=== PATIENT | male | born 1950 | race Two or more races ===

== ENCOUNTER 2018-04-02 07:27 | Emergency (ER) | payer MEDICARE, OTHER ==
[2018-04-02 07:39] VITALS: BP 165/80; PULSE 71; TEMP 97.8; BMI 34.5
--- NOTE | 2018-04-02 07:50 | PDOC ---
History of Present Illness - General Chief Complaint: Pain, Acute Stated Complaint: LOWER LEFT SIDE PAIN Time Seen by Provider: 04/02/18 07:47 History Source: Patient Exam Limitations: No Limitations - History of Present Illness Initial Comments: Pt is a 67 yo M, with PMH of diabetes (on metformin only), who is presenting with complaints of LLQ abdominal pain since 5 am this morning. Pt states it is constant and sharp in nature, with no radiation to his testicles, back, or flank. Pt stats last BM was yesterday morning and has been regular. He has been tolerating PO food and fluid intake. Pt denies any fevers/chills, headache, vision changes, syncope, chest pain, palpitations, SOB, nausea/vomiting, urinary symptoms (hematuria, dysuria, urgency), diarrhea/constipation, or leg swelling. Social: Pt denies any cigarette, alcohol, or drug use. Pt denies any recent travel or sick contacts. Surgical: no relevant history. Family: son with kidney stones, mother with DM. 04/02/18 08:18 Past History - Travel Traveled outside of the country in the last 30 days: No Close contact w/someone who was outside of country & ill: No - Past Medical History Allergies/Adverse Reactions: Allergies Allergy/AdvReac Type Severity Reaction Status Date / Time No Known Allergies Allergy Verified 04/02/18 07:36 Cardiac Disorders: No Diabetes: Yes HTN: No Hypercholesterolemia: No - Surgical History Abdominal Surgery: No GI Surgery: No - Family Disease History Family Disease History: Diabetes: Mother Comment:: Son with kidney stones 04/02/18 08:21 - Suicide/Smoking/Psychosocial Hx Smoking History: Never smoked Review of Systems - Review of Systems Able to Perform ROS?: Yes Is the patient limited [place] proficient: No Constitutional: Yes: Weight Stable. No: Chills, Diaphoresis, Fever, Loss of Appetite, Weakness HEENTM: No: Recent change in vision, Nose Congestion, Hearing Loss, Throat Pain Respiratory: No: Cough, Orthopnea, Shortness of Breath Cardiac (ROS): No: Chest Pain, Edema, Lightheadedness, Palpitations, Syncope, Chest Tightness ABD/GI: Yes: Abdominal cramping. No: Abdominal Distended, Blood Streaked Bowels , Constipated, Diarrhea, Nausea, Poor Appetite, Poor Fluid Intake, Rectal Bleeding, Vomiting : No: Burning, Dysuria, Frequency, Flank Pain, Hematuria, Pain, Urgency, Testicular Swelling, Testicular Pain Musculoskeletal: Yes: Back Pain (lower back pain, pt states is chronic in his low back from work). No: Joint Pain Integumentary: No: Rash Neurological: No: Headache, Weakness, Unsteady Gait, Ataxia, Dizziness Psychiatric: No: Sleep Pattern Change, Change in Appetite Endocrine: No: Increased Urine, Change in Weight Hematologic/Lymphatic: No: Anemia, Blood Clots, Easy Bleeding, Easy Bruising All Other Systems: Reviewed and Negative *Physical Exam - Vital Signs Last Vital Signs Temp Pulse Resp BP Pulse Ox 97.8 F 71 19 165/80 95 04/02/18 07:36 04/02/18 07:36 04/02/18 07:36 04/02/18 07:36 04/02/18 07:36 - Physical Exam General Appearance: Yes: Nourished, Appropriately Dressed, Mild Distress (pt appears to be in pain), Obese HEENT: positive: EOMI, ANAI, Normal ENT Inspection, Normal Voice, Pharynx Normal , Hearing Grossly Normal. negative: Scleral Icterus (R), Scleral Icterus (L), Pharyngeal Erythema, Tonsillar Exudate, Tonsillar Erythema, Rhinorrhea Neck: positive: Trachea midline, Normal Thyroid, Supple. negative: Tender, Rigid, Decreased range of motion, Lymphadenopathy (R), Lymphadenopathy (L), Rigidity Respiratory/Chest: positive: Lungs Clear, Normal Breath Sounds. negative: Chest Tender, Respiratory Distress, Accessory Muscle Use, Crackles, Wheezing Cardiovascular: positive: Regular Rhythm, Regular Rate, S1, S2. negative: Edema , JVD, Murmur Vascular Pulses: Carotid (R): 4+, Carotid (L): 4+ Gastrointestinal/Abdominal: positive: Normal Bowel Sounds, Flat, Soft. negative : Tender, Organomegaly, Pulsatile Mass, Distended, Guarding, Rebound, Hernia Male Genitalia: negative: testicular tenderness, hernia, CVAT Rectal Exam: positive: deferred Lymphatic: negative: Adenopathy, Tenderness Musculoskeletal: positive: Normal Inspection. negative: CVA Tenderness, Decreased Range of Motion Extremity: positive: Normal Capillary Refill, Normal Inspection, Normal Range of Motion, Pelvis Stable. negative: Tender, Pedal Edema Integumentary: positive: Normal Color, Dry, Warm. negative: Jaundice, Clammy, Diaphoresis Neurologic: positive: cleaner and trimmer II-XII NML intact, Fully Oriented, Alert, Normal Mood/ Affect, Normal Response, Motor Strength 5/5 Moderate Sedation - Procedure Monitoring Vital Signs: Procedure Monitoring Vital Signs Temperature 97.8 F 04/02/18 07:36 Pulse Rate 71 04/02/18 07:36 Respiratory Rate 04/02/18 07:36 Blood Pressure 165/80 04/02/18 07:36 O2 Sat by Pulse Oximetry (%) 95 04/02/18 07:36 ED Treatment Course - LABORATORY CBC & Chemistry Diagram: 04/02/18 08:31 04/02/18 08:31 Medical Decision Making - Medical Decision Making Pt was seen at bedside, also will be seen by attending Dr. Monet. Pt presenting with complaints of LLQ abdominal pain since 5 am this morning. Pt states it is constant and sharp in nature, with no radiation to his back or flank. Pt stats last BM was yesterday morning and has been regular. He has been tolerating PO food and fluid intake. Pt denies any fevers/chills, headache, vision changes, syncope, chest pain, palpitations, SOB, nausea/vomiting, urinary symptoms ( hematuria, dysuria, urgency), diarrhea/constipation, or leg swelling. PE showed no abdominal tenderness, no rebound, no guarding. No CVA tenderness. Considering nephrolithiasis vs diverticulosis/diverticulitis vs colitis vs appendicitis vs constipation/gastroparesis. Minimal suspicion for AAA as pt has no radiation of pain to the back, pain is unilateral. Ordered work-up including CBC, CMP, UA, urine culture, and spiral CT r/o stones. Provided 650 mg PO tylenol, 15 mg IV toradol, and 1 L IV NS for improvement of pain. Will continue to reassess pt and monitor for symptomatic improvement. 04/02/18 07:53 CBC and CMP WNL, no elevated WBC. BUN/Cr WNL. UA showed +2 blood. 04/02/18 09:47 IMPRESSION: 1. 3 mm mid left ureteral calculus with mild hydronephrosis. 2. Additional left nephrolithiasis. 3. No additional evidence of acute pathology within the abdomen or pelvis. Please see above discussion. 04/02/18 09:48 Pt can be discharged to home with follow-up. Pt was provided urine strainer. Pt advised to follow-up with PCP in 1-2 days. Strict return precautions provided with pt understanding. 04/02/18 09:59 *DC/Admit/Observation/Transfer Diagnosis at time of Disposition: Nephrolithiasis - Discharge Dispostion Disposition: HOME Condition at time of disposition: Improved Decision to Admit order: No - Referrals - Patient Instructions Printed Discharge Instructions: DI for Kidney Stones Additional Instructions: You were seen in the ER today for pain in your abdomen. The results of your labs and imaging today showed a kidney stone. Please follow-up with your primary care doctor within 1-2 days to discuss your visit and make sure your symptoms have improved. Please return to the ER if you have any worsening pain, development of fevers or chills, blood in your urine or stool, inability to urinate, loss of consciousness, inability to tolerate food or fluids, or any other concerns. Print Language: ALBANIAN - Post Discharge Activity
[2018-04-02] MEDS ORDERED: ACETAMINOPHEN 325 MG TABLET (FP) PO ONE (08:09)
[2018-04-02] MEDS ORDERED: SODIUM CHLORIDE 1,000 ML IV STA (08:09)
[2018-04-02] MEDS ORDERED: KETOROLAC TROMETHAMINE 15 MG/ML VIAL IVPUSH ONE (08:10)
[2018-04-02] MEDS ORDERED: KETOROLAC TROMETHAMINE 15 MG/ML VIAL ONE (08:16)
[2018-04-02] MEDS ORDERED: ACETAMINOPHEN 325 MG TABLET (FP) ONE (08:16)
--- NOTE | 2018-04-02 08:23 | PDOC ---
Attending Attestation - Resident Resident Name: IsrealNadja - ED Attending Attestation I have performed the following: I have examined & evaluated the patient, The case was reviewed & discussed with the resident, I agree w/resident's findings & plan, Exceptions are as noted - HPI HPI: 04/02/18 08:24 Pt is a 67 yo M, with PMH of diabetes (on metformin only) presenting to the ER with a complaint of sudden onset left sided abdominal/flank pain Symptoms began at 5 am No associated fevers or chills No prior episodes like this no trauma tolerating po, nml bowel movements 04/02/18 09:10 - Physicial Exam PE: 04/02/18 08:24 GENERAL: The patient is in no acute distress. LUNGS: Breath sounds equal, clear to auscultation bilaterally. No wheezes, and no crackles. HEART:Regular rate and rhythm, normal S1 and S2 without murmur, rub or gallop. ABDOMEN: Soft, left sided tenderness to palpation, no guarding or rebound, no abdominal distention EXTREMITIES: Normal range of motion, no edema. NEUROLOGICAL: Cranial nerves II through XII grossly intact. Normal speech. No focal neurological deficits. MUSCULOSKELETAL: Back non-tender to palpation, no CVA tenderness SKIN: Warm, Dry, normal turgor, no rashes or lesions noted. 04/02/18 09:11 - Medical Decision Making 04/02/18 09:22 Laboratory Tests 04/02/18 04/02/18 08:31 08:31 WBC 9.6 Hgb 16.1 Hct 49.3 H Plt Count 223 Urine Blood 2+ H Urine Nitrite Negative Ur Leukocyte Esterase Negative CT pending 04/02/18 09:29 Laboratory Tests 04/02/18 08:31 BUN [address] demonstrates Left mid ureteral stone 3mm will discharge to home Will ask pt to strain his urine Follow up witn PMD No indication for abx at this time
[2018-04-02 09:01] LABS: URINE APPEARANCE CLEAR; URINE BILIRUBIN NEGATIVE (<2.0 mg/dL); URINE COLOR LTYELLOW; URINE GLUCOSE (UA) NEGATIVE (NEGATIVE); URINE KETONE NEGATIVE (NEGATIVE); URINE LEUK ESTERASE NEGATIVE (NEGATIVE); URINE NITRITE NEGATIVE (NEGATIVE); URINE PROTEIN NEGATIVE (NEGATIVE); URINE UROBILINOGEN NEGATIVE mg/dL (0.2-1.0)
[2018-04-02 09:02] LABS: BASO % 0.3 % (0-2.0); EOS % 0.7 % (0-4.5); HEMATOCRIT 49.3 % (35.4-49); HEMOGLOBIN 16.1 GM/dL (11.7-16.9); LYMPH % 14.1 % (8-40); MCH 28.9 pg (25.7-33.7); MCHC 32.7 g/dl (32.0-35.9); MEAN CELL VOLUME 88.5 fl (80-96); MEAN PLT VOLUME 8.5 fl (7.5-11.1); MONO % 5.3 % (3.8-10.2); NEUT % 79.6 % (42.8-82.8); PLATELET COUNT 223 K/MM3 (134-434); RBC 5.57 M/mm3 (4.00-5.60); RDW 14.3 % (11.9-15.9); WHITE BLOOD COUNT 9.6 K/mm3 (4.0-10.0)
[2018-04-02 09:25] LABS: ALBUMIN 3.5 g/dl (3.4-5.0); ALK PHOS 80 U/L (45-117); ANION GAP 6 MMOL/L (8-16); BILIRUBIN,TOTAL 0.2 mg/dL (0.2-1); BLOOD UREA NITROGEN 11 mg/dL (7-18); CALCIUM 8.6 mg/dL (8.5-10.1); CHLORIDE 102 mmol/L (98-107); CO2 30 mmol/L (21-32); CREATININE 0.9 mg/dL (0.55-1.3); GLUCOSE,RANDOM 170 mg/dL (74-106); POTASSIUM 4.5 mmol/L (3.5-5.1); SGOT/AST 22 U/L (15-37); SGPT/ALT 33 U/L (13-61); SODIUM 138 mmol/L (136-145); TOT PROT 7.2 g/dl (6.4-8.2)
== END 2018-04-02 10:10 | disposition home or self-care (01) ==
LOC: JER 07:27
PROC: 3E0337Z Introduction of Electrolytic and Water Balance Substance into Peripheral Vein, Percutaneous Approach (ICD-10-PCS; principal; 2018-04-02)
PROC: 3E0333Z Introduction of Anti-inflammatory into Peripheral Vein, Percutaneous Approach (ICD-10-PCS; 2018-04-02)
DX: N13.2 Hydronephrosis with renal and ureteral calculous obstruction (principal); E11.9 Type 2 diabetes mellitus without complications; Z79.84 Long term (current) use of oral hypoglycemic drugs
CPT/HCPCS: 36415; 74176; 80053; 81003; 81015; 85025; 87086; 96361; 96374; 99281-25; J7030

== ENCOUNTER 2018-12-07 07:08 | Emergency (ER) | payer OTHER, MEDICARE | END 2018-12-07 10:00 | disposition home or self-care (01) | LOC: JER 07:08 | DX: S70.12XA Contusion of left thigh, initial encounter (principal); W19.XXXA Unspecified fall, initial encounter; Y93.H2 Activity, gardening and landscaping; Y92.89 Other specified places as the place of occurrence of the external cause; Y99.0 Civilian activity done for income or pay; E11.9 Type 2 diabetes mellitus without complications; Z79.84 Long term (current) use of oral hypoglycemic drugs ==

== ENCOUNTER 2019-05-27 09:29 | Emergency (ER) | payer MEDICARE, OTHER ==
[2019-05-27 09:50] VITALS: BP 140/86; PULSE 78; TEMP 98.4; BMI 32.9
--- NOTE | 2019-05-27 11:00 | PDOC ---
History of Present Illness - General Chief Complaint: Rash Stated Complaint: INFECTION Time Seen by Provider: 05/27/19 10:14 History Source: Patient Exam Limitations: No Limitations - History of Present Illness Initial Comments: 05/27/19 11:03 Patient is a 68-year-old male who presents to the ED with complaint of a penile rash that he has had for the last 1 month. The patient states that he saw his primary doctor and was told that this may be a fungal rash and gave him a cream. The patient admits that the cream has not helped him at all. He was told to wash with soap and water and nothing else. The patient denies any fevers or chills. He denies any dysuria or hematuria. He states the rash is just under the head of his penis. He admits to a tingling/burning-like pain. He denies any itching. He presents today for reevaluation. The patient states that he appreciated some liquid/blisters on the rash which is no longer there. He denies any past medical history or allergies to medications. Past History - Past Medical History Allergies/Adverse Reactions: Allergies Allergy/AdvReac Type Severity Reaction Status Date / Time No Known Allergies Allergy Verified 05/27/19 09:45 Home Medications: Ambulatory Orders Metformin HCl [Glucophage] 500 mg PO BID 04/02/18 Clotrimazole 1 applic TD ASDIR 05/27/19 Gemfibrozil 600 mg PO BID 05/27/19 Levothyroxine Sodium [Unithroid] 25 mcg PO DAILY 05/27/19 Cardiac Disorders: No COPD: No Diabetes: Yes HTN: No Hypercholesterolemia: No - Surgical History Abdominal Surgery: No GI Surgery: No - Psycho Social/Smoking Cessation Hx Smoking History: Never smoked Hx Alcohol Use: No Drug/Substance Use Hx: No Review of Systems - Review of Systems Comments:: 05/27/19 11:04 - Review of Systems Able to Perform ROS?: Yes Constitutional: No: Fever, Chills, Loss of Appetite, Night Sweats, Weakness HEENTM: No: Eye Pain, Vision changes, Ear Pain, Throat Pain, Throat Swelling, Mouth Pain, Difficulty Swallowing Respiratory: No: Cough, Shortness of Breath, Wheezing, Sputum Production Cardiac (ROS): No: Chest Pain, Chest Tightness, Palpitations, Irregular Heart Beat, Edema ABD/GI: No: Nausea, Vomiting, Abdominal Pain, Diarrhea : No Dysuria, No Hematuria, No Frequency, No Urgency, No Penile Discharge/Pain ; positive: Penile rash Musculoskeletal: No: Muscle Pain, Back Pain, Joint Pain, Muscle Weakness, Neck Pain Integumentary: No: Lesions, Rash Neurological: No: Headache, Numbness, Tingling, Weakness, Speech Difficulties *Physical Exam - Vital Signs Last Vital Signs Temp Pulse Resp BP Pulse Ox 98.4 F 78 18 140/86 98 05/27/19 09:48 05/27/19 09:48 05/27/19 09:48 05/27/19 09:48 05/27/19 09:48 - Physical Exam 05/27/19 11:05 - Physical Exam General Appearance: Nourished, Appropriately Dressed, No Distress HEENT: EOMI, Normal Voice, no oral lesions appreciated Neck: Supple, No Lymphadenopathy (R), No Lymphadenopathy (L), No Rigidity, No Decreased range of motion Respiratory/Chest: Lungs Clear, Normal Breath Sounds. No Respiratory Distress, No Accessory Muscle Use Cardiovascular: Regular Rhythm, Regular Rate, S1, S2 Gastrointestinal/Abdominal: Normal Bowel Sounds, Soft. Non-tender, No Guarding , No Rebound, No Rigidity : There is a rash just proximal to the glans appreciated after the foreskin is retracted that appears to be healing ulcers consistent with HSV. There are no vesicles appreciated. There is no tenderness to palpation. Musculoskeletal: Normal Inspection. No Decreased Range of Motion Extremity: Normal Capillary Refill, Normal Inspection Integumentary: Normal Color, Dry. No Rash Neurologic: rail track maintainer II-XII NML intact, Fully Oriented, Alert, Normal Mood/Affect, Normal Response Medical Decision Making - Medical Decision Making 05/27/19 10:56 Assessment: Patient is a 68-year-old male with a rash/lesions on his penis which are more consistent with HSV. The patient has been made aware of this. Plan: -HSV and RPR sent to the lab -Patient to be discharged and he has been made aware we will call him with the results. He has been made aware that he should avoid any sexual activity until we have further results. The patient understands and agrees with this treatment and plan and he is stable for discharge. Discharge - Discharge Information Problems reviewed: Yes Clinical Impression/Diagnosis: Penile rash Condition: Stable Disposition: HOME - Follow up/Referral Referrals: Raulito Pham MD [Primary Care Provider] - 3 days CallBack Reminder: Call with results regardless - Patient Discharge Instructions Patient Printed Discharge Instructions: DI for Genital Herpes Additional Instructions: You may have genital herpes. We have sent testing to the lab to confirm whether this is what is causing your rash. Avoid sexual activity as this rash could be very contagious. We will call you with the results of your blood work. Print Language: MICRONESIAN - Post Discharge Activity
== END 2019-05-27 11:02 | disposition home or self-care (01) ==
LOC: JERFT 09:29
DX: N50.9 Disorder of male genital organs, unspecified (principal); R21 Rash and other nonspecific skin eruption; E11.9 Type 2 diabetes mellitus without complications
CPT/HCPCS: 36415; 86593; 87529; 99283-25